=== PATIENT | female | born 1980 | race Caucasian/White ===

== ENCOUNTER 2017-09-14 03:33 | Inpatient (IN) | payer OTHER ==
[2017-09-14] MEDS ORDERED: LIDOCAINE 1% 300 MG/30 ML SDV ONE (03:51)
[2017-09-14] MEDS ORDERED: TERBUTALINE SULFATE 1 MG/ML VIAL ONE (03:51)
[2017-09-14] MEDS ORDERED: AMMONIA AROMATIC 1 EACH AMP IH ONE (03:51)
[2017-09-14] MEDS ORDERED: OLIVE OIL 118 ML BTL ONE (03:51)
[2017-09-14] MEDS ORDERED: MISOPROSTOL 200 MCG TAB ONE (03:52)
[2017-09-14] MEDS ORDERED: OXYTOCIN 10 UNIT/ML VIAL ONE (03:52)
[2017-09-14] MEDS ORDERED: OLIVE OIL 118 ML BTL MISC PRN (03:58)
[2017-09-14] MEDS ORDERED: OXYTOCIN/RINGERS LACTATE 1,000 ML IV PRN (03:58)
[2017-09-14] MEDS ORDERED: IBUPROFEN 600 MG TAB PO PRN (03:58)
[2017-09-14] MEDS ORDERED: MISOPROSTOL 200 MCG TAB PR PRN (03:58)
[2017-09-14] MEDS ORDERED: EPSOM SALT 454 GM TP PRN (03:58)
[2017-09-14] MEDS ORDERED: LIDOCAINE 1% 300 MG/30 ML SDV SC PRN (03:58)
[2017-09-14] MEDS ORDERED: LR 1,000 ML IV PRN (03:58)
[2017-09-14] MEDS ORDERED: TERBUTALINE SULFATE 1 MG/ML VIAL IV PRN (03:58)
[2017-09-14 05:05] LABS: PLATELET COUNT 227 10^3/uL (150-400)
--- NOTE | 2017-09-14 05:15 | PDGENHP ---
History and Physical History and Physical: CARE: [facility] HPI: Patient is a 37 yo G 1 P 0 at 38.4 weeks ega who presents to L&D with complaints of SROM clear fluid at midnight with contractions that started soon after. She is currently ankit every 3-4 minutes, uncomfortable, but breathing well with contractions. Baby is active. She is having light bloody show. EDC: 09/17/17 which is based on LMP: 12/11/16 which is known and consistent with Ultrasound at 9 weeks. Her is complicated by: 1) AMA- all genetic screening/level II U/S normal 2) Rh Neg 3) Initially triplet , was found to have mono/di twin demise at 9 weeks. 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 Currently taking Prednisone and Valtrex Review of Systems: Constitutional: Denies any fever, chills, or fatigue HEENT: denies any visual changes, difficulty swallowing, hearing loss Cardiovascular: Denies any chest pain, palpitations, leg swelling Respiratory: denies any cough, wheezing, or shortness of breathe GI: Denies any nausea, vomiting, diarrhea, constipation : denies any dysuria, urgency, frequency, vaginal bleeding Musculoskeletal: denies any muscle or bone pain Skin: denies any rashes Neuro: denies any headache, seizures, lightheadedness, dizziness, or loss of consciousness Psychiatric: denies any depression, anxiety, or SI/HI thoughts HISTORY: Previous OB history: none Past medical history: none, currently has Browning Palsy Past surgical history: none Medications: PNV, prednisone, valtrex Allergies : sulfa LABS: Rh: O neg ABS: Neg Rubella: Immune HbsAg: NR HIV: NR VDRL: NR 1hr: 117 GC: Neg Chlamydia: Neg Pap: WNL GBS: neg BMI: (prepreg) 18.5 PHYSICAL EXAM: Constitutional: WNL, A&Ox3 HEENT: normocephalic atraumatic, supple Heart: RRR, no murmur Chest: CTA-B Abdomen: Soft, nontender, gravid SVE: 9/80/0 Extremities: trace edema, negative koki's sign Neuro: left sided facial weakness, unable to close left eye completely, lift left eyebrow or smile with left side of mouth. Psych: normal affect assessment: Reassuring FHTs, baseline 130 +accels, no decels, moderate variability Contractions: toco q 3-4 mod/firm Assessment: 1) 37 yo G 1 P 0 with IUP@ 39.4 weeks 2) Active labor 3) GBS pos 4) Cat 1 FHR tracing 5) Rh neg 6) Browning Palsy @ 39 weeks, currently treated with prednisone and valtrex Plan: 1) Admit to L&D 2) Intermittent monitoring per policy 3) Diet as tolerated 4) Saline lock 5) Pain relief as patient desires - planning unmedicated 6) Anticipate
[2017-09-14] MEDS ORDERED: LR 500 ML IV PRN (11:00)
[2017-09-14] MEDS ORDERED: OXYTOCIN/RINGERS LACTATE 500 ML IV SCH (11:00)
[2017-09-14] MEDS ORDERED: fentaNYL 200 MCG, BUPIVACAINE 0.5% 20 ML in NS 100 ML EP SCH ×2 (12:30→14:00)
[2017-09-14] MEDS ORDERED: FENT2MCG/ML&BUP0.1% 1 EA, fentaNYL 200 MCG, BUPIVACAINE 0.5% 20 ML in NS 100 ML IV ONE (12:30)
[2017-09-14] MEDS ORDERED: LABETALOL HCL 5 MG/ML 20 ML MDV IVP ONE (12:37)
[2017-09-14] MEDS ORDERED: BUPIVACAINE 0.25% 30 ML SDV ONE (12:40)
[2017-09-14] MEDS ORDERED: PHENYLEPHRINE HCL 100 MCG/ML SYR ONE (12:40)
[2017-09-14] MEDS ORDERED: fentaNYL 100 MCG/2 ML INJ ONE (12:41)
[2017-09-14 12:43] LABS: PLATELET COUNT 246 10^3/uL (150-400)
--- NOTE | 2017-09-14 12:48 | OBPROG ---
Labor Progress Note Assessment/Plan: Assessment: 37 y/o at 39.4 weeks ega with prolonged second stage - slow progress with maternal fatigue Pitocin augmentation - currently at 3 milliunits Severe range BPs Category 2 EFM - intermittent variable decels Plan: Reviewed plan with Dr. Stewart Will treat severe range BP with 10 mg Labetalol IV Check pre-eclampsia labs Anesthesia notified of need for epidural Plan to labor down and resume pushing when patient has rested 09/14/17 12:47 09/14/17 13:20 Subjective/Intrapartum Course: 09/14/17 12:56 Patient has been pushing with good effort for 4 hours with very slow progress. Is having increased discomfort and very fatigued. Objective: Patient ABO/Rh O NEGATIVE 09/14/17 04:07 Pitocin augmentation at 3 mu Slow decent, currently +1 station with molding Category 2 EFM - occasional mild variable decels Contractions q 2-3 - pushing with good effort Severe range BPs over last 45 mins -160s-180s/110s Patient denies headache, visual changes, epigastric pain - SVE Dilation (cm): 10 Station: +1 Membranes: SROM Amniotic Fluid Color: Clear Dilation Complete Date: 09/14/17 Dilation Complete Time: 08:45 - Contraction Pattern Assessment Current Contraction Pattern: Regular - Physical Exam General Appearance: WD/WN, alert, no apparent distress Estimated Weight: 2501-3400g Neck: non-tender Respiratory: chest non-tender Cardiac/Chest: normal peripheral pulses Abdomen: normal bowel sounds Extremities: normal range of motion DTR- Lower Extremities: Knee (R): 2+, Knee (L): 2+ Skin: normal color, warm/dry Neuro/Psych: no motor/sensory deficits, normal mood/affect, oriented x 3, other (denies headache, visual changes) CNM Assessment - Uterine Assessment Contraction Strength: Moderate Uterine Resting Tone: Palpates Soft Contraction Frequency (minutes): 2-3 Contraction Duration (sec): 60 - Intermittent Auscultation Auscultation Method Used: Ultrasound Heart Rate Auscultated (bpm): 130 FHR Acceleration(s) Auscultated: Yes FHR Deceleration(s) Auscultated: Yes (intermittent variable decels) Oxytocin Orders Assessment - Pre-Induction/Augmentation Assessment Presentation: Vertex Gestational Age Determined By: Ultrasound, Last Menstral Period Estimated Weight: 2501-3400g Membrane Status: Ruptured Current Contraction Pattern: Irregular - Induction/Augmentation Consent Risks/Benefits of Procedure Reviewed/Pt Agrees to Proceed: Yes ICD10 Worksheet Patient Problems: Problems Problem Status Onset Advanced maternal age, 1st Acute Browning's palsy affecting in third trimester Acute Prolonged second stage (of labor) Acute - ICD10 Problem Qualifiers (1) Prolonged second stage (of labor) (2) Advanced maternal age, 1st (3) Browning's palsy affecting in third trimester
--- NOTE | 2017-09-14 13:36 | PREANESOB ---
Obstetric Pre-Anesthesia Info - General Info Proposed Procedure: PCEA - Labor Status Cervical Dilation per last OB SVE: 10 Station per last OB SVE: +1 Rupture of Membranes Date: 09/14/17 Rupture of Membranes Time: 00:01 Amniotic Fluid Color: Clear Labor Epidural: Proposed Anesthesia Allergies/Adverse Reactions: Allergy/AdvReac Type Severity Reaction Status Date / Time Sulfa (Sulfonamide Allergy Mild Rash Verified 09/14/17 03:56 Antibiotics) Home Medications: Medication Instructions Recorded Valacyclovir HCl [Valtrex] 1,000 mg PO BID 09/14/17 predniSONE [Prednisone] 60 PO DAILY 09/14/17 Visit Medications: Generic Name Dose Route Start Last Admin Trade Name Freq PRN Reason Stop Dose Admin Lactated Ringer's 1,000 mls @ 0 mls/hr 09/14/17 03:58 09/14/17 11:20 Lr IV 09/15/17 03:57 1,000 mls PRN PRN Administration SEE PROTOCOL CONDITIONS Protocol Per Protocol Oxytocin/Lactated Ringer's 1,000 mls @ 125 mls/hr 09/14/17 03:58 Pitocin 20 Units/Lr (Premix) IV PRN PRN Post bleeding Lactated Ringer's 500 mls @ 500 mls/hr 09/14/17 11:00 Lr IV 09/15/17 11:01 PRN PRN Maternal Hypotension Oxytocin/Lactated Ringer's 500 mls @ 0 mls/hr 09/14/17 11:00 09/14/17 11:20 Pitocin 30 Units/Lr (Premix) IV 03/13/18 10:59 500 mls CONT DANIA Administration Protocol Per Protocol Fentanyl 200 mcg/ Bupivacaine 100 mls @ 0 mls/hr 09/14/17 12:30 HCl 20 ml/ Sodium Chloride EP 09/24/17 12:29 CONT DANIA Protocol As Directed Ibuprofen 600 mg 09/14/17 03:58 Motrin PO ONCE PRN post , pain Lidocaine HCl 300 mg 09/14/17 03:58 Lidocaine Hcl 1% SC 03/13/18 03:57 ONCE PRN episiotomy Magnesium Sulfate 454 gm 09/14/17 03:58 Epsom Salt TP 03/13/18 03:57 Q1H PRN perineal discomfort Misoprostol 800 - 1,000 mcg 09/14/17 03:58 Cytotec WI ONCE PRN Vaginal Atony/Bleeding [place] Oil 118 ml 09/14/17 03:58 Sweet Oil MISC 03/13/18 03:57 ONCE PRN perineal massage Terbutaline Sulfate 0.25 mg 09/14/17 03:58 Brethine IV 03/13/18 03:57 ONCE PRN Tachysystole Discontinued Medications Generic Name Dose Route Start Last Admin Trade Name Alyson PRN Reason Stop Dose Admin Ammonia (Aromatic Spirit) Confirm 09/14/17 03:51 Ammonia Aromatic Administered 09/14/17 03:52 Dose 1 each IH .STK-MED ONE Bupivacaine HCl Confirm 09/14/17 12:40 Sensorcaine 0.25% Sdv Administered 09/14/17 12:41 Dose 30 ml .ROUTE .STK-MED ONE Fentanyl Confirm 09/14/17 12:41 Sublimaze Administered 09/14/17 12:42 Dose 100 mcg .ROUTE .STK-MED ONE Labetalol HCl 20 mg 09/14/17 12:37 09/14/17 12:46 Trandate Injection IVP 09/14/17 12:38 10 mg ONCE ONE Administration Lidocaine HCl Confirm 09/14/17 03:51 Lidocaine Hcl 1% Administered 09/14/17 03:52 Dose 300 mg .ROUTE .STK-MED ONE Misoprostol Confirm 09/14/17 03:52 Cytotec Administered 09/14/17 03:53 Dose 1,000 mcg .ROUTE .STK-MED ONE [place] Oil Confirm 09/14/17 03:51 Sweet Oil Administered 09/14/17 03:52 Dose 118 ml .ROUTE .STK-MED ONE Oxytocin Confirm 09/14/17 03:52 Pitocin Administered 09/14/17 03:53 Dose 40 unit .ROUTE .STK-MED ONE Phenylephrine HCl Confirm 09/14/17 12:40 Neosynephrine Administered 09/14/17 12:41 Dose 1,000 mcg .ROUTE .STK-MED ONE Terbutaline Sulfate Confirm 09/14/17 03:51 Brethine Administered 09/14/17 03:52 Dose 1 mg .ROUTE .STK-MED ONE - Vital Signs Latest Vital Signs (Nursing): Temp Pulse Resp BP Pulse Ox 96 170/105 H 09/14/17 12:46 09/14/17 12:46 Height/Weight (Nursing): Height 165.1 cm Weight 59.874 kg - Focused Exam Neck exam: FROM Mallampati Score: Class 2 Mouth exam: normal dental/mouth exam Pulmonary: no respiratory distress Cardiovascular: regular rate and rhythym Labs: 09/14/17 12:25 09/14/17 12:25 Patient ABO/Rh O NEGATIVE 09/14/17 04:07 Uric Acid 6.7 mg/dL (2.5-6.8) 09/14/17 12:25 Total Bilirubin 0.4 mg/dL (0.1-1.4) 09/14/17 12:25 Conjugated Bilirubin 0.3 mg/dL (0.0-0.5) 09/14/17 12:25 Unconjugated Bilirubin 0.1 mg/dL (0.0-1.1) 09/14/17 12:25 AST 57 IU/L (14-46) H 09/14/17 12:25 ALT 37 IU/L (9-52) 09/14/17 12:25 Lactate Dehydrogenase 828 IU/L (313-618) H 09/14/17 12:25 - Plan Consent Signed and on Chart: Yes
--- NOTE | 2017-09-14 13:39 | POSTANESTH ---
Post Anesthetic Evaluation Cardiovascular Status: Similar to Pre-Op Cond Respiratory Status: Similar to Pre-op Cond. Level of Consciousness/Mental Status: Can Participate in Eval Pain Control: Adequate, Prn Tx Ordered Nausea/Vomiting Control: Adequate, Prn Tx Ordered Complications Possibly Related to Anesthesia: None Noted (Epidural placement well tolerated. Pt started on PCEA.)
[2017-09-14] MEDS ORDERED: fentaNYL 2MCG/ML/BUP 0.1% RTU 100 ML EP SCH (14:00)
[2017-09-14] MEDS ORDERED: LR 500 ML IV SCH (14:00)
--- NOTE | 2017-09-14 16:00 | SOAPPROG ---
SOAP Progress Note Assessment/Plan: Assessment: 37 G1 at 39w4d - with arrest of descent after pushing for 4 hours, and preeclampsia. Review of events: Pt admitted around 0400 at 9 cm dilated. Desired no intervention. Started pushing shortly after 0800. BP on admit at 0400 = 135/ 81. At 0845 was determined to be completely dilated by Ambrosio Mcleod CNM, and started pushing. BP at that time 137/73. BP was not checked again until 1125, it was 163/105. They remained persistently elevated over the next hour. The decision was made to proceed with an epidural. I ordered 20mg labetolol to treat the HTN, but Dr. Cyr recommended 10mg as he was placing the epidural. BPs have been better, but at 1454 she had another BP at 144/77. PIH labs were drawn, AST was elevated at 57, creat was elevated at 0.8, uric acid was 6.7, WBC = 246. The diagnosis of preeclampsia was made. Exam by myself indicated a 0 station and a rim of cervix present. I recommended proceeding with section in the setting of arrest of descent and preeclampsia. Plan: section recommended. Many questions answered. Pt and her requested some time to think about things. 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 Medically, this makes me uncomfortable, but currently she is stable, so willing to allow this to happen, though not recommended. When the nap interval has passed, I plan to obtain written informed consent for proceeding with a primary section. 09/14/17 15:56 09/14/17 16:01 Subjective: Pt is exhausted, but comfortable now after receiving an epidural. Denies YUEN, has blurry vision due to no contacts, no chest pain, no dyspnea. Objective: Vital Signs Temp Pulse Resp BP Pulse Ox 96 170/105 H 09/14/17 12:46 09/14/17 12:46 Laboratory Results 09/14/17 12:25 09/14/17 12:25 - Time Spent With Patient Time Spent With Patient: 20 min ICD10 Worksheet Patient Problems: Problems Problem Status Onset Advanced maternal age, 1st Acute Browning's palsy affecting in third trimester Acute Prolonged second stage (of labor) Acute
--- NOTE | 2017-09-14 16:32 | SOAPPROG ---
SOAP Progress Note Assessment/Plan: Assessment: 37 G1 at 39w4d - with arrest of descent after pushing for 4 hours, and preeclampsia. Review of events: Pt admitted around 0400 at 9 cm dilated. Desired no intervention. Started pushing shortly after 0800. BP on admit at 0400 = 135/ 81. At 0845 was determined to be completely dilated by Ambrosio Mcleod CNM, and started pushing. BP at that time 137/73. BP was not checked again until 1125, it was 163/105. They remained persistently elevated over the next hour. The decision was made to proceed with an epidural. I ordered 20mg labetolol to treat the HTN, but Dr. Cyr recommended 10mg as he was placing the epidural. BPs have been better, but at 1454 she had another BP at 144/77. PIH labs were drawn, AST was elevated at 57, creat was elevated at 0.8, uric acid was 6.7, WBC = 246. The diagnosis of preeclampsia was made. Exam by myself indicated a 0 station and a rim of cervix present. I recommended proceeding with section in the setting of arrest of descent and preeclampsia. Plan: section recommended. Many questions answered. Pt and her requested some time to think about things. 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 Medically, this makes me uncomfortable, but currently she is stable, so willing to allow this to happen, though not recommended. When the nap interval has passed, I plan to obtain written informed consent for proceeding with a primary section. 09/14/17 15:56 09/14/17 16:01 09/14/17 16:30 Written informed consent obtained. Will proceed with primary section. Dr. Cyr, anesthesiologist notified. Makayla Stewart MD, FACOG Objective: Vital Signs Temp Pulse Resp BP Pulse Ox 37.3 C 110 H 24 H 149/91 H 99 09/14/17 16:21 09/14/17 16:21 09/14/17 16:21 09/14/17 16:21 09/14/17 16:21 Laboratory Results 09/14/17 12:25 09/14/17 12:25 ICD10 Worksheet Patient Problems: Problems Problem Status Onset Advanced maternal age, 1st Acute Browning's palsy affecting in third trimester Acute Prolonged second stage (of labor) Acute
[2017-09-14] MEDS ORDERED: LR 500 ML IV ONE (16:41)
[2017-09-14] MEDS ORDERED: ceFAZolin 2 GM/SWFI 2 GM/20 ML SYR IVP ONE (16:45)
[2017-09-14] MEDS ORDERED: LR 1,000 ML IV SCH (17:00)
--- NOTE | 2017-09-14 17:36 | PREANESOB ---
Obstetric Pre-Anesthesia Info - General Info Proposed Procedure: : 1 Para: 0 PRISCILLA: 09/17/17 Gestational Age: 39 week(s) and 4 day(s) - Labor Status Cervical Dilation per last OB SVE: 10 Station per last OB SVE: +1 Rupture of Membranes Date: 09/14/17 Rupture of Membranes Time: 00:01 Amniotic Fluid Color: Clear Section History: Primary Indications for Current Section: Arrest of Descent, Other (Specify) ( Increased BP) Anesthesia Allergies/Adverse Reactions: Allergy/AdvReac Type Severity Reaction Status Date / Time Sulfa (Sulfonamide Allergy Mild Rash Verified 09/14/17 03:56 Antibiotics) Home Medications: Medication Instructions Recorded Valacyclovir HCl [Valtrex] 1,000 mg PO BID 09/14/17 predniSONE [Prednisone] 60 PO DAILY 09/14/17 Visit Medications: Generic Name Dose Route Start Last Admin Trade Name Freq PRN Reason Stop Dose Admin Lactated Ringer's 1,000 mls @ 0 mls/hr 09/14/17 03:58 09/14/17 11:20 Lr IV 09/15/17 03:57 1,000 mls PRN PRN Administration SEE PROTOCOL CONDITIONS Protocol Per Protocol Oxytocin/Lactated Ringer's 1,000 mls @ 125 mls/hr 09/14/17 03:58 Pitocin 20 Units/Lr (Premix) IV PRN PRN Post bleeding Lactated Ringer's 500 mls @ 500 mls/hr 09/14/17 11:00 Lr IV 09/15/17 11:01 PRN PRN Maternal Hypotension Oxytocin/Lactated Ringer's 500 mls @ 0 mls/hr 09/14/17 11:00 09/14/17 11:20 Pitocin 30 Units/Lr (Premix) IV 03/13/18 10:59 500 mls CONT DANIA Administration Protocol Per Protocol Fentanyl 200 mcg/ Bupivacaine 100 mls @ 0 mls/hr 09/14/17 12:30 HCl 20 ml/ Sodium Chloride EP 09/24/17 12:29 CONT DANIA Protocol As Directed Lactated Ringer's 500 mls @ 0 mls/hr 09/14/17 14:00 Lr IV 03/13/18 13:59 CONT DANIA As Directed Lactated Ringer's 1,000 mls @ 125 mls/hr 09/14/17 17:00 Lr IV 09/15/17 16:59 CONT DANIA Ibuprofen 600 mg 09/14/17 03:58 Motrin PO ONCE PRN post , pain Lidocaine HCl 300 mg 09/14/17 03:58 Lidocaine Hcl 1% SC 03/13/18 03:57 ONCE PRN episiotomy Magnesium Sulfate 454 gm 09/14/17 03:58 Epsom Salt TP 03/13/18 03:57 Q1H PRN perineal discomfort Misoprostol 800 - 1,000 mcg 09/14/17 03:58 Cytotec NE ONCE PRN Vaginal Atony/Bleeding [place] Oil 118 ml 09/14/17 03:58 Sweet Oil MISC 03/13/18 03:57 ONCE PRN perineal massage Terbutaline Sulfate 0.25 mg 09/14/17 03:58 Brethine IV 03/13/18 03:57 ONCE PRN Tachysystole Discontinued Medications Generic Name Dose Route Start Last Admin Trade Name Freq PRN Reason Stop Dose Admin Ammonia (Aromatic Spirit) Confirm 09/14/17 03:51 Ammonia Aromatic Administered 09/14/17 03:52 Dose 1 each IH .STK-MED ONE Bupivacaine HCl Confirm 09/14/17 12:40 Sensorcaine 0.25% Sdv Administered 09/14/17 12:41 Dose 30 ml .ROUTE .STK-MED ONE Fentanyl Confirm 09/14/17 12:41 Sublimaze Administered 09/14/17 12:42 Dose 100 mcg .ROUTE .STK-MED ONE Fentanyl/Bupivacaine HCl 100 mls @ 0 mls/hr 09/14/17 14:00 Fentanyl/Bupivacaine/Ns 2 Mcg/Ml 0.1% (Premix EP 09/24/17 13:59 CONT DANIA Protocol As Directed Cefazolin Sodium 2 gm in 20 mls @ 40 mls/hr 09/14/17 16:45 09/14/17 16:52 Cefazolin Syringe IVP 09/14/17 17:14 20 mls ONCALL ONE Administration Protocol Lactated Ringer's 500 mls @ 0 mls/hr 09/14/17 16:41 Lr IV 09/14/17 16:42 ONCE ONE As Directed Labetalol HCl 20 mg 09/14/17 12:37 09/14/17 12:46 Trandate Injection IVP 09/14/17 12:38 10 mg ONCE ONE Administration Lidocaine HCl Confirm 09/14/17 03:51 Lidocaine Hcl 1% Administered 09/14/17 03:52 Dose 300 mg .ROUTE .STK-MED ONE Misoprostol Confirm 09/14/17 03:52 Cytotec Administered 09/14/17 03:53 Dose 1,000 mcg .ROUTE .STK-MED ONE [place] Oil Confirm 09/14/17 03:51 Sweet Oil Administered 09/14/17 03:52 Dose 118 ml .ROUTE .STK-MED ONE Oxytocin Confirm 09/14/17 03:52 Pitocin Administered 09/14/17 03:53 Dose 40 unit .ROUTE .STK-MED ONE Phenylephrine HCl Confirm 09/14/17 12:40 Neosynephrine Administered 09/14/17 12:41 Dose 1,000 mcg .ROUTE .STK-MED ONE Terbutaline Sulfate Confirm 09/14/17 03:51 Brethine Administered 09/14/17 03:52 Dose 1 mg .ROUTE .STK-MED ONE - Vital Signs Latest Vital Signs (Nursing): Temp Pulse Resp BP Pulse Ox 37.3 C 110 H 24 H 149/91 H 99 09/14/17 16:21 09/14/17 16:21 09/14/17 16:21 09/14/17 16:21 09/14/17 16:21 Height/Weight (Nursing): Height 165.1 cm Weight 59.874 kg - Focused Exam Neck exam: FROM Mallampati Score: Class 1 Mouth exam: normal dental/mouth exam Pulmonary: no respiratory distress Cardiovascular: regular rate and rhythym Labs: 09/14/17 12:25 09/14/17 12:25 Patient ABO/Rh O NEGATIVE 09/14/17 04:07 Uric Acid 6.7 mg/dL (2.5-6.8) 09/14/17 12:25 Total Bilirubin 0.4 mg/dL (0.1-1.4) 09/14/17 12:25 Conjugated Bilirubin 0.3 mg/dL (0.0-0.5) 09/14/17 12:25 Unconjugated Bilirubin 0.1 mg/dL (0.0-1.1) 09/14/17 12:25 AST 57 IU/L (14-46) H 09/14/17 12:25 ALT 37 IU/L (9-52) 09/14/17 12:25 Lactate Dehydrogenase 828 IU/L (313-618) H 09/14/17 12:25 - Plan Consent Signed and on Chart: Yes
[2017-09-14] MEDS ORDERED: fentaNYL 100 MCG/2 ML INJ IVP PRN (17:49)
[2017-09-14] MEDS ORDERED: NALOXONE HCL 0.4 MG/ML INJ IVP PRN (17:49)
[2017-09-14] MEDS ORDERED: ONDANSETRON 4 MG/2 ML VIAL IVP PRN (17:49)
[2017-09-14] MEDS ORDERED: OXYTOCIN 100 UNITS/10 ML VIAL ONE (17:50)
[2017-09-14] MEDS ORDERED: morphINE PF 5 MG/10 ML INJ ONE (17:51)
[2017-09-14] MEDS ORDERED: SIMETHICONE 80 MG TAB CHEW PO PRN (18:00)
[2017-09-14] MEDS ORDERED: PROMETHAZINE HCL 25 MG/ML INJ IVP PRN (18:00)
[2017-09-14] MEDS ORDERED: KETOROLAC 30 MG/1 ML SDV ONE (18:07)
[2017-09-14] MEDS ORDERED: oxyCODONE IR 5 MG TAB PO PRN ×2 (18:10→19:30)
--- NOTE | 2017-09-14 18:16 | SOAPPROG ---
SOAP Progress Note Assessment/Plan: Assessment: 37yo s/p primary c/s bells palsy Plan: spoke with Neurology (Dr Herrera health education coordinator) and recommended no change in protocol with labor or surgery. cont Prednisone 60mg QD x 7 days and valtrex. No need for taper dosing. 09/14/17 18:10 09/14/17 18:16 Objective: Vital Signs Temp Pulse Resp BP Pulse Ox 37.3 C 110 H 24 H 149/91 H 99 09/14/17 16:21 09/14/17 16:21 09/14/17 16:21 09/14/17 16:21 09/14/17 16:21 Laboratory Results 09/14/17 12:25 09/14/17 12:25 ICD10 Worksheet Patient Problems: Problems Problem Status Onset Advanced maternal age, 1st Acute Browning's palsy affecting in third trimester Acute Prolonged second stage (of labor) Acute
--- NOTE | 2017-09-14 18:23 | POSTANESTH ---
Post Anesthetic Evaluation Cardiovascular Status: Similar to Pre-Op Cond Respiratory Status: Similar to Pre-op Cond. Level of Consciousness/Mental Status: Can Participate in Eval Pain Control: Adequate, Prn Tx Ordered Nausea/Vomiting Control: Adequate, Prn Tx Ordered Complications Possibly Related to Anesthesia: None Noted
[2017-09-14] MEDS: KETOROLAC 30 MG/1 ML SDV IVP SCH (18:29)
[2017-09-14] MEDS: ACETAMINOPHEN 325 MG TAB PO SCH ×2 (18:40→22:30)
[2017-09-14] MEDS ORDERED: BISACODYL 10 MG SUPP PR PRN (19:41)
[2017-09-14] MEDS ORDERED: LACTULOSE 20 GM/30 ML UDCUP PO PRN (19:41)
[2017-09-14] MEDS ORDERED: POLYETHYLENE GLYCOL 3350 17 GM PKT PO PRN (19:41)
[2017-09-14] MEDS ORDERED: MAGNESIUM HYDROXIDE 30 ML UDCUP PO PRN (19:41)
--- NOTE | 2017-09-14 19:45 | POSTOPPROG ---
Post Op Note Date of Operation: 09/14/17 Surgeon: Makayla Stewart Transportation Economics Teacher: JULIA Damon Anesthesiologist: Manav Cyr MD Anesthesia: Epidural Pre-op Diagnosis: arrest of descent, preeclampsia Post-op Diagnosis: same Indication: arrest of descent, preeclampsia Procedure: primary low transverse C/S Findings: LOP presentation of female infant Inf/Abcess present in the surg proc area at time of surgery?: No Total fluids administered: 2200 Complications: none Specimen(s): placenta
[2017-09-14] MEDS ORDERED: valACYclovir 500 MG TAB PO SCH (21:00)
[2017-09-14] MEDS ORDERED: predniSONE 10 MG TAB PO ONE (21:30)
[2017-09-14] MEDS: IBUPROFEN 800 MG TAB PO SCH (23:07)
[2017-09-14] MEDS: SENNOSIDES/DOCUSATE SODIUM TAB PO SCH (23:55)
[2017-09-15] MEDS: KETOROLAC 30 MG/1 ML SDV IVP SCH ×3 (00:08→11:43)
[2017-09-15] MEDS: ACETAMINOPHEN 325 MG TAB PO SCH ×5 (02:29→20:14)
--- NOTE | 2017-09-15 02:35 | GOP ---
[f rep st] OPERATIVE REPORT DATE OF OPERATION: 09/14/2017 SURGEON: Makayla Stewart MD PIPE MAKER: JULIA Phipps ANESTHESIOLOGIST: Manav Cyr MD PREOPERATIVE DIAGNOSIS: 1. Arrest of ascent and dilation. 2. Preeclampsia. POSTOPERATIVE DIAGNOSIS: 1. Arrest of ascent and dilation. 2. Preeclampsia. PROCEDURE PERFORMED: Primary low transverse section. FINDINGS: Fetus was in an LOP presentation. ESTIMATED BLOOD LOSS: 700 mL. INDICATIONS: A 37-year-old 1, para 0 female, who presented in spontaneous labor at 9 cm dila roland the morning of 09/14/2017 at 39 weeks 4 days' gestation. Her progress was quite slow, and after she had been pushing for over 3 hours, it was noted that her blood pressure was elevated. Preeclampt ic labs were obtained, noting an elevated AST, elevated uric acid, and elevated creatinine. Her bloo d pressure was so elevated that it was treated with 10 mg of labetalol IV. She received an epidural in hopes that the relaxation may allow labor to progress. This was unsuccessful, as the statio n did not change. It was also noted that there was a rim of cervix palpable, and she had significant labial edema. DESCRIPTION OF PROCEDURE: Written informed consent was obtained. The patient was taken to the opera ting room, where epidural anesthesia was dosed appropriately. She was then placed in the dorsal supi ne position with a left tilt. She received 2 g of Ancef IV. A Estrella catheter was placed. A timeout was performed. She was sterilely prepared and draped in a standard fashion. Testing was performed to confirm that the epidural was providing adequate anesthesia. An incision was made, taken down sha rply to the fascia. The fascia was incised on either side of the midline. This incision was extende d laterally with the scissors. The rectus muscles were in the midline. The peritoneum was crashed with hemostats and entered sharply. This incision was extended in a blunt fashion. The bladder blade was inserted. An incision was made over the lower uterine segment, and a bladder f lap was created in the standard fashion. The bladder blade was then reinserted over the bladder flap . The hysterotomy was made and taken down sharply until the uterine cavity was entered. Release of clear fluid was noted. The incision was extended in a blunt fashion. The vertex was then able to be elevated first out of the pelvis and then through the hysterotomy with the assistance of urvashi l pressure. Bulb suction was performed as 1-minute delayed cord clamping was also performed. The in jordan was handed to the awaiting nurse practitioner. A cord segment was obtained. This was later discarded. Cord blood was also obtained. The uterus was massaged until delivery of the placen ta. The uterus was then exteriorized and cleared of all clots and debris using 2 laps. The hysterotomy w as then repaired in the standard fashion with a single layer first, followed by a second imbricating layer. Excellent hemostasis was noted. The uterus was replaced into the abdomen. Sloppy wets were used to irrigate the posterior cul-de-sac. Of note, normal tubes and ovaries were noted bilaterally. Review of the hysterotomy again confirmed hemostasis. The fascia was then closed with 0 PDS in a r unning fashion. The wound was irrigated. The Shaina fascia was then closed with 3-0 Monocryl in a r unning fashion. The skin was then closed with 4-0 Monocryl in a running subcuticular fashion. The i ncision was covered with Steri-Strips and a dressing. The patient tolerated the procedure well. Sponge, lap, and needle counts were correct x2. She was t aken to the recovery room in stable condition. COMPLICATIONS: None. SURGEON: Makayla Stewart MD URINE OUTPUT: 100 mL. INTRAVENOUS FLUIDS: mL. /[id number]/MODL
[2017-09-15 05:53] LABS: PLATELET COUNT 142 10^3/uL (150-400)
[2017-09-15] MEDS: valACYclovir 500 MG TAB PO SCH ×2 (08:34→20:17)
[2017-09-15] MEDS: SENNOSIDES/DOCUSATE SODIUM TAB PO SCH ×2 (08:41→20:13)
[2017-09-15] MEDS ORDERED: predniSONE 10 MG TAB PO ONE (09:00)
[2017-09-15] MEDS: IBUPROFEN 800 MG TAB PO SCH ×3 (12:50→18:24)
[2017-09-15] MEDS: predniSONE 20 MG TAB PO SCH (12:54)
--- NOTE | 2017-09-15 13:43 | OBPP ---
Progress Note Assessment/Plan: Assessment: 37yo s/p primary c/s bells palsy Rh Negative Plan: Routine Post op care cont to work with ambulate/void increase fluid intake cont steroids per neurology recommendations plan d/c home 2-3 days 09/15/17 13:37 09/15/17 13:45 Subjective/ Course: 09/15/17 13:43 Pt doing well, denies any pain or heavy bleeding. She has be OOB x1. she is . she is processing the occurrence of events from yesterday, comfortable with outcome. Objective: 09/15/17 05:00 09/15/17 05:00 Patient ABO/Rh O NEGATIVE 09/14/17 19:23 Uric Acid 6.5 mg/dL (2.5-6.8) 09/15/17 05:00 Total Bilirubin 0.4 mg/dL (0.1-1.4) 09/14/17 12:25 Conjugated Bilirubin 0.3 mg/dL (0.0-0.5) 09/14/17 12:25 Unconjugated Bilirubin 0.1 mg/dL (0.0-1.1) 09/14/17 12:25 AST 63 IU/L (14-46) H 09/15/17 05:00 ALT 38 IU/L (9-52) 09/15/17 05:00 Lactate Dehydrogenase 828 IU/L (313-618) H 09/14/17 12:25 Temp Pulse Resp BP Pulse Ox 36.8 C 68 16 115/76 95 09/15/17 09:00 09/15/17 09:00 09/15/17 09:00 09/15/17 09:00 09/15/17 09:00 Uterine Position/Fundal Height: Umbilicus -1 Uterine Tone: Firm Physical Exam - Physical Exam General Appearance: WD/WN, alert, no apparent distress Respiratory: lungs clear, normal breath sounds Cardiac/Chest: regular rate, rhythm Abdomen: non-tender, soft, dressing (c/d/i) Extremities: pedal edema Skin: normal color, warm/dry Neuro/Psych: motor weakness (left side paralysis)
[2017-09-16] MEDS: IBUPROFEN 800 MG TAB PO SCH ×2 (02:32→16:59)
[2017-09-16] MEDS: ACETAMINOPHEN 325 MG TAB PO SCH ×6 (02:32→22:02)
[2017-09-16] MEDS: IRON POLYSAC/IRON HEME 28 MG TAB PO SCH ×3 (08:37→21:13)
[2017-09-16] MEDS: valACYclovir 500 MG TAB PO SCH ×2 (08:37→21:13)
[2017-09-16] MEDS: SENNOSIDES/DOCUSATE SODIUM TAB PO SCH ×2 (08:37→21:13)
[2017-09-16] MEDS ORDERED: predniSONE 10 MG TAB PO ONE (09:00)
[2017-09-16] MEDS: predniSONE 20 MG TAB PO SCH (11:08)
--- NOTE | 2017-09-16 12:02 | OBPP ---
Progress Note Assessment/Plan: Assessment: POD2 s/p PLTCS for arrest of descent with dx of mild preeclampsia made during labor, never started on mag. Routine cares - likely home tomorrow. Incision looks good, swelling over mons likely related to retractor from C- section. VS have normalized, BP normal, low mild. No meds. Labs stable if trending up slightly yesterday AM, will recheck once more tomorrow AM to ensure down-trending. SANDRA 09/16/17 23:59 Subjective/ Course: 09/15/17 13:43 Pt doing well, denies any pain or heavy bleeding. She has be OOB x1. she is . she is processing the occurrence of events from yesterday, comfortable with outcome. 09/16/17 23:35 Doing well this AM. Acuna kept in overnight but out this AM and has since voided without issue. Feels like labial swelling is improved, but still quite a bit of swelling around the mons. Questions about diastasis and core exercises after . BF going well, pain well controlled. Objective: 09/15/17 05:00 09/15/17 05:00 Patient ABO/Rh O NEGATIVE 09/14/17 19:23 Uric Acid 6.5 mg/dL (2.5-6.8) 09/15/17 05:00 Total Bilirubin 0.4 mg/dL (0.1-1.4) 09/14/17 12:25 Conjugated Bilirubin 0.3 mg/dL (0.0-0.5) 09/14/17 12:25 Unconjugated Bilirubin 0.1 mg/dL (0.0-1.1) 09/14/17 12:25 AST 63 IU/L (14-46) H 09/15/17 05:00 ALT 38 IU/L (9-52) 09/15/17 05:00 Lactate Dehydrogenase 828 IU/L (313-618) H 09/14/17 12:25 Temp Pulse Resp BP Pulse Ox 37.1 C 64 16 138/79 H 94 09/16/17 02:30 09/16/17 02:30 09/16/17 02:30 09/16/17 02:30 09/16/17 02:30 Laboratory Tests 09/14/17 09/15/17 12:25 05:00 BUN 15 Creatinine 0.8 0.8 Estimated GFR > 60 > 60 Uric Acid 6.7 6.5 Total Bilirubin 0.4 Conjugated Bilirubin 0.3 Unconjugated Bilirubin 0.1 AST 57 H 63 H ALT 37 38 Lactate Dehydrogenase 828 H Uterine Position/Fundal Height: Umbilicus -2 Uterine Tone: Firm Physical Exam - Physical Exam Abdomen: non-tender, soft, incision (CDI with steri-strips, some mild swelling over mons, no bruising, no erythema), other (Labial swelling mild at this point , acuna out)
[2017-09-17] MEDS: IBUPROFEN 800 MG TAB PO SCH ×2 (00:55→09:37)
[2017-09-17] MEDS: ACETAMINOPHEN 325 MG TAB PO SCH ×2 (04:19→14:52)
[2017-09-17 04:33] LABS: PLATELET COUNT 167 10^3/uL (150-400)
[2017-09-17] MEDS ORDERED: predniSONE 10 MG TAB PO ONE (09:00)
[2017-09-17] MEDS: SENNOSIDES/DOCUSATE SODIUM TAB PO SCH (09:36)
[2017-09-17] MEDS: IRON POLYSAC/IRON HEME 28 MG TAB PO SCH (09:37)
[2017-09-17] MEDS: valACYclovir 500 MG TAB PO SCH (09:39)
[2017-09-17] MEDS: predniSONE 20 MG TAB PO SCH (09:48)
--- NOTE | 2017-09-17 11:45 | OBGCSDC ---
General Delivery Information - General Info : 1 Para: 1 Abortions: 0 L&D Analgesia/Anesthesia Type: Epidural Admission Date: 09/14/17 Labs: Patient ABO/Rh O NEGATIVE 09/14/17 19:23 Hct 28.0 % (38.0-47.0) L 09/17/17 04:26 - Hospital Course Intrapartum: 09/14/17 12:56 Patient has been pushing with good effort for 4 hours with very slow progress. Is having increased discomfort and very fatigued. : 09/15/17 13:43 Pt doing well, denies any pain or heavy bleeding. She has be OOB x1. she is . she is processing the occurrence of events from yesterday, comfortable with outcome. 09/16/17 23:35 Doing well this AM. Estrella kept in overnight but out this AM and has since voided without issue. Feels like labial swelling is improved, but still quite a bit of swelling around the mons. Questions about diastasis and core exercises after . BF going well, pain well controlled. 09/17/17 11:41 Pt doing well, denies any pain or heavy bleeding. She is ambulating and voiding without difficulty. She is . She denies any headaches, visual changes, epigastric pain. Desires d/c home today. O) BP elevated 140-160/80-90's, afebrile constitutional: WNWF, A&Ox3 HEENT: normocephalic, atraumatic, supple Heart: RRR, No murmur Chest: CTA-B Abdomen: Soft, nontender Uterus: Firm at U-1 Incision: C/D/I, healing well Lochia: Minimal rubra Perineum: healing well, mild swelling Extremities: 1+ pedal edema, and negative Pricila's sign Neuro: Grossly normal A) 37-year-old S/P primary c/s pre-eclampsia, labs normal today POD#3 rh negative anemia bells palsy P) Discharge home today Continue cont PO iron Pelvic rest x6wks Discussed danger signs (infection, preeclampsia, depression, heavy bleeding, etc ) RTO Tuesday for BP check Discussed with Dr Stewart- agrees with plan of care Vaginal - Diagnosis Amniotic Fluid Color: Clear - Delivery Providers Surgeon: Makayla Stewart - Delivery Indications for Current Section: Arrest of Descent, Other (Specify) ( Increased BP) Data PRISCILLA: 09/17/17 Gestational Age: 40 week(s) and 0 day(s) [place]roz[place] Delivery Date: 09/14/17 Delivery Time: 17:28 Sex of Infant: Female Weight (gm): 3052 g Score (1 Min): 8 Score (5 Min): 9 Discharge Information - Discharge Information Prescriptions: oxyCODONE IR [Oxycodone Ir (*)] 5 - 10 mg PO Q4HRS PRN #20 tab PRN Reason: Pain, Severe Able To Take Po Ibuprofen [Motrin (*)] 800 mg PO Q8 #60 tab Iron Polysacch/Iron Heme Polyp [Bifera] 28 mg PO BID #60 tab Condition: Good
[2017-09-17 14:13] VITALS: BP 148/90
[2017-09-18] MEDS ORDERED: predniSONE 10 MG TAB PO ONE (09:00)
[2017-09-19] MEDS ORDERED: predniSONE 10 MG TAB PO ONE (09:00)
== END 2017-09-17 16:15 | disposition home or self-care (01) | DRG 765 ==
LOC: FLD 03:33 → OBSVTOIN 03:58 → FLD 18:56 → FOB 20:14
PROVIDERS: ADMIT Advanced Practice Midwife; ATTEND Advanced Practice Midwife
PROC: 10D00Z1 Extraction of Products of Conception, Low, Open Approach (ICD-10-PCS; principal; 2017-09-14)
DX: O62.1 Secondary uterine inertia (principal); O99.354 Diseases of the nervous system complicating childbirth; G51.0 Bell's palsy; Z37.0 Single live birth; Z3A.39 39 weeks gestation of pregnancy; O14.94 Unspecified pre-eclampsia, complicating childbirth; O99.824 Streptococcus B carrier state complicating childbirth; O99.03 Anemia complicating the puerperium
CPT/HCPCS: J0690; J1885; J2274; J2370; J2590; J3010; J3105; J7512